=== PATIENT | male | born 1940 | race Caucasian/White ===

== ENCOUNTER 2018-02-28 15:38 | Inpatient (IN) | payer OTHER ==
[~2018-02-28] VITALS: Ht 172.7 cm; Wt 79.5 kg
--- NOTE | ~2018-02-28 | HC ---
[facility] [place] [address] CONSULTATION Name: YURI BEACH Room #: 215-P [facility] IN M.R.#: [id number] Admission: 02/28/18 Attend Phys: Torrie Franco MD Discharge: Date of : 38 Report #: [id number] THIS REPORT FOR: //name// CC: Torrie Stauffer DATE OF SERVICE: 03/03/2018 HISTORY OF PRESENT ILLNESS: The patient is an 78-year-old white male, who has a history of insulin-dependent diabetes mellitus, premorbid diabetic, peripheral neuropathy, admitted from home with weakness and inability to ambulate. He is noted to have atrial fibrillation with rapid ventricular rate and was placed on IV Cardizem. He had some hyponatremia and pancytopenia. There was concern regarding the complaints of weakness and inability to ambulate. Neurology has seen him and their impression is that he likely has the peripheral neuropathy along with spinal stenosis. MRI of the brain has been ordered as well as MRI of the lumbosacral spine. We have been consulted regarding rehabilitation issues. PAST MEDICAL HISTORY: Includes knee replacement in 2003, back surgery 1999, insulin-dependent diabetes mellitus, hypertension, hyperlipidemia, angina, asthma, coronary artery disease, spinal stenosis, syncope, obstructive sleep apnea. HABITS: No history of tobacco abuse, alcohol only on special occasions. MEDICATIONS: Please see the full medication listing. ALLERGIES: PENICILLIN, SULFA. SOCIAL HISTORY: Lives in a house with his , premorbidly was independent, ambulatory with a walker. No steps. REVIEW OF SYSTEMS: No current complaints of chest pain, shortness of breath, abdominal discomfort. He has the neuropathic changes with numbness and tingling of his distal lower extremities and some weakness of his hands consistent with his neuropathy. He has a prior left facial droop, which he relates back to some ENT surgery, apparently the parotid gland and has been left with a left facial droop. PHYSICAL EXAMINATION: GENERAL: He is a pleasant 78-year-old white male in no obvious distress. VITAL SIGNS: Last recorded temperature 98.3, pulse 86, respirations 18, blood pressure 144/74. He is alert, pleasant. HEENT: Appeared to be benign. NEUROLOGIC: Cranial nerves are grossly intact. Facies are symmetric. He does have the left facial droop that he notes is old. EOMs appeared to be full. His [address] [place] [address] CONSULTATION Name: YURI BEACH Room #: 215-P [facility] IN M.R.#: [id number] Admission: 02/28/18 Attend Phys: Torrie Franco MD Discharge: Date of : 38 Report #: [id number] functional range of motion of both upper extremity strength is grade 4-/5. Mild decreased etcrhq-pu-[id number]. He does have some hand intrinsic weakness. His lower extremities, he has distal lower extremity with decreased sensation consistent with his peripheral neuropathy. Old total knee replacement incision which is well healed. Strength of lower extremities is probably a grade 3+/5. DTRs are trace to 1. No focal calf swelling. His max assist coming to stand, but was able to take some steps with the walker, tends to be retropulsive. ASSESSMENT: An 78-year-old white male with the following problem list: 1. Gait instability with difficulty ambulating. 2. Generalized weakness with a diagnosis of peripheral neuropathy/spinal stenosis per Neurology. MRI of the brain is pending along with MRI of the lumbosacral spine. Neurology is recommending an EMG as an outpatient. 3. Insulin-dependent diabetes mellitus. 4. Atrial fibrillation with rapid ventricular response. 5. Bilateral lower extremity cellulitis, which is improving. 6. Pancytopenia. 7. Electrolyte abnormalities. PLAN: We will see what the MRI scan show. Therapies to further evaluate. We are assessing the patient to see if he would meet criteria for an acute in-hospital inpatient rehabilitation stay. We will be glad to follow along with you. By: 1122 [id number] Delonte Hilario MD /nt
--- NOTE | ~2018-02-28 | HC ---
[facility] [place] [address] CONSULTATION Name: YURI BEACH Room #: 215-P [facility] IN M.R.#: [id number] Admission: 02/28/18 Attend Phys: Torrie Franco MD Discharge: 03/05/18 Date of : 36 Report #: [id number] THIS REPORT FOR: //name// CC: Torrie Stauffer HISTORY OF PRESENT ILLNESS: This patient was seen at the request of Dr. Asif regarding mild pancytopenia that was picked up on his admission laboratory studies. He was admitted through the ER with complaints of weakness and has known atrial fibrillation. He states that he has been on long-term iron therapy for long ago detected anemia. He follows with Dr. Mckee. He denies any untoward bleeding or bruising. He denies any new suspicious masses or pains. He has no sweats, chills, fevers or weight loss. He is weak in his legs, leading to difficulty walking. PAST MEDICAL HISTORY: Significant for alcoholism. He has depression, diabetic peripheral neuropathy, prior gait disturbance due to the neuropathy. Medically managed hypertension, hyperlipidemia. He was treated for a primary cutaneous follicular cell lymphoma and seen by Dr. Margie Luna last fall. This tumor originally arose on his left cheek in 01/2012 and was treated with bendamustine and Rituxan as well as radiation therapy. In 2013, there was a left cheek recurrence and he received further radiation therapy in conjunction with further Rituxan in 2014. In 2015, he received additional left periorbital radiation therapy and this was by Dr. Yip. 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 It was noted on that workup that a PET scan was performed as well as a bone marrow aspiration and biopsy. MEDICATIONS: As listed on the MFR. ALLERGIES: SULFA AND PENICILLIN CAUSING EDEMA. SOCIAL HISTORY: Again, was positive for alcohol and he is a nonsmoker. He denies illicit drug use. FAMILY HISTORY: Noncontributory. REVIEW OF SYSTEMS: As noted. PHYSICAL EXAMINATION: HEENT: Shows left facial droop from his prior therapy. His radiation tattoo is present. NECK: Shows no suspicious adenopathy. [address] [address] CONSULTATION Name: YURI BEACH Room #: 215-P [facility] IN M.R.#: [id number] Admission: 02/28/18 Attend Phys: Torrie Franco MD Discharge: 03/05/18 Date of : 38 Report #: [id number] LUNGS: Chest is clear. CARDIOVASCULAR: Normal S1, S2. ABDOMEN: Did not reveal palpable spleen. NEUROLOGIC: No focal localizing signs. PSYCHIATRIC: Not agitated or confused. SKIN: Normal turgor with actinic changes. LYMPHATICS: No palpable supraclavicular adenopathy. LABORATORY DATA: Has been reviewed and now shows a mild thrombocytopenia, which is new in comparison with his labs from in May. His bone marrow at that time was completely negative/nondiagnostic for leukemia or lymphoma. ASSESSMENT: Ongoing anemia. PLAN: Await labs as ordered. Thanks for allowing me to see him with you in consultation and being allowed to participate in his care. <ELECTRONICALLY SIGNED> By: Delmer Blevins MD 03/05/18 2135 1450 Whitney Grant MD /nt
--- NOTE | ~2018-02-28 | 2DMMODE ---
[facility] [email or web address] [place] [address] 2 D/M-MODE ECHOCARDIOGRAM Name: YURI BEACH Room #: 215-P [facility] IN M.R.#: [id number] Admission: 02/28/18 Attend Phys: Rafael Bergman, Discharge: Date of : 36 Date of Service: 03/02/18 0719 Report #: [id number] THIS REPORT FOR: //name// APPROVED REPORT Study performed: 03/01/2018 09:49:16 EXAM: Comprehensive 2D, Doppler, and color-flow Echocardiogram Patient Location: Bedside Room #: 215 Status: on-call BSA: 1.93 HR: 94 bpm BP: 112/59 mmHg Rhythm: Atrial Fibrillation Other Information Study Quality: Good Risk Factors: Cardiac Risk Factors: DM, HTN Indications CAD Weakness 2D Dimensions LVEF(%): 54.38 (>50%) IVSd: 10.73 (7-11mm) LVOT Diam: 20.00 (18-24mm) LVDd: 42.93 mm PWd: 10.91 (7-11mm) Ascending Ao: 35.59 (22-36mm) LVDs: 30.94 (25-40mm) Aortic Root: 29.11 mm Childs's LVEF: 54.38 % Volumes Left Atrial Volume (Systole) Single Plane 4CH: 80.99 mL Single Plane 2CH: 73.60 mL LA ESV Index: 44.00 mL/m2 Aortic Valve AoV Peak Daniel.: 1.53 m/s AO Peak Gr.: 9.78 mmHg LVOT Max P.59 mmHg LVOT Max V: 0.80 m/s TREY Vmax: 1.69 cm2 [facility] [address] [place] [address] 2 D/M-MODE ECHOCARDIOGRAM Name: YURI BEACH [facility] Room #: 215-[facility] IN .R.#: [id number] Admission: 02/28/18 Attend Phys: Rafael Bergman, Discharge: Date of : 36 Date of Service: 03/02/18 0719 Report #: [id number] AI Vmax: 3.18 m/s AI Lassen: 1.59 m/s2 AI PHT: 586.57 ms Pulmonary Valve PV Peak Daniel.: 0.84 m/s PV Peak Gr.: 2.83 mmHg Tricuspid Valve TR Peak Daniel.: 2.65 m/s RAP Estimate: 7.00 mmHg TR Peak Gr.: 28.20 mmHg PA Pressure: 35.00 mmHg Left Ventricle The left ventricle is normal size. There is normal LV segmental wall motion. Borderline concentric left ventricular hypertrophy. Left ventricular systolic function is normal. The left ventricular ejection fraction is within the normal range. LVEF is 50-55%. This study is not technically sufficient to allow evaluation of the LV diastolic function due to atrial fibrillation. Right Ventricle The right ventricle is normal size. The right ventricular systolic function is normal. Atria Left atrium is moderately dilated. Right atrium is moderately dilated. Aortic Valve The Aortic valve is mildly sclerotic. Mild aortic regurgitation. There is no aortic valvular stenosis. Mitral Valve The mitral valve is normal in structure. There is mitral annular calcification. Moderate mitral regurgitation. No evidence of mitral valve stenosis. Tricuspid Valve The tricuspid valve is normal in structure. Moderate tricuspid regurgitation.Pulmonary artery pressure is 35 mmHg. Pulmonic Valve The pulmonary valve is normal in structure. Trace pulmonic regurgitation. [employer] [facility] [address] [place] [address] 2 D/M-MODE ECHOCARDIOGRAM Name: YURI BEACH Room #: 215-P [facility] IN M.R.#: [id number] Admission: 02/28/18 Attend Phys: Rafael Bergman, Discharge: Date of : 38 Date of Service: 03/02/18 0719 Report #: [id number] The aortic root is normal in size. IVC is normal in size and collapses with >50% inspiration Pericardium There is no pericardial effusion. <Conclusion> The left ventricle is normal size. Left ventricular systolic function is normal. The right ventricle is normal size. Left atrium is moderately dilated. Right atrium is moderately dilated. The Aortic valve is mildly sclerotic. Mild aortic regurgitation. Moderate mitral regurgitation. Moderate tricuspid regurgitation.Pulmonary artery pressure is 35 mmHg. <ELECTRONICALLY SIGNED> By: Souleymane Reid MD 03/02/18718 8 8 Souleymane Reid MD /INF
--- NOTE | ~2018-02-28 | HC ---
[facility] [place] [address] CONSULTATION Name: YURI BEACH Room #: 215-P [facility] IN M.R.#: [id number] Admission: 02/28/18 Attend Phys: Rafael Bergman MD Discharge: Date of : 38 Report #: [id number] THIS REPORT FOR: //name// CC: Rafael Stauffer DATE OF SERVICE: 03/01/2018 INDICATION: Chronic atrial fibrillation. HISTORY OF PRESENT ILLNESS: This is an 78-year-old gentleman with a history of CAD, persistent atrial fibrillation, diabetes mellitus, hypertension, hypercholesterolemia, reactive airway disease, presenting with generalized weakness. He had been at [facility] but was discharged home. The patient lives with his . It seems that for the past few weeks, he has had progressive weakness, unable to ambulate on his own. He denies any episodes of chest pains, shortness of breath, palpitations, lightheadedness or congestion. There is no recent history of fever or cough. PAST MEDICAL HISTORY: History of CAD with stent to the RCA in 2010, followed by Dr. Gigi Isbell. Chronic atrial fibrillation, managed with rate control and anticoagulation therapy. History of hypertension, diabetes mellitus, hypercholesterolemia, reactive airway disease. ALLERGIES: Include SULFA and PENICILLIN. MEDICATIONS: At home include Pradaxa 75 mg twice a day, diltiazem 240 mg daily, Monopril 20 mg daily, Lasix p.r.n., Pravachol 40 mg at night, Combivent inhaler. SOCIAL HISTORY: Negative for tobacco use. The patient lives with his . FAMILY HISTORY: Negative for premature CAD. REVIEW OF SYSTEMS: A full 10-point review of systems performed. Only the pertinent positives and negatives are described in the HPI. PHYSICAL EXAMINATION: VITAL SIGNS: Blood pressure is 120/60, heart rate is 94 beats per minute. GENERAL APPEARANCE: This is an elderly appearing male in no acute respiratory distress. HEAD AND EYES: Normocephalic. Sclerae are anicteric. ENT: Oral mucosa moist. NECK: Supple. LUNGS: Clear to auscultation. CARDIAC: Irregularly irregular, S1, S2 positive. ABDOMEN: Soft, nontender. [facility] [address] [place] [address] CONSULTATION Name: YURI BEACH Room #: 215-P [facility] IN ..#: [id number] Admission: 02/28/18 Attend Phys: Rafael Bergman MD Discharge: Date of : 38 Report #: [id number] EXTREMITIES: No cyanosis. Trace edema. Chest x-ray reveals no acute pulmonary process. LABORATORY VALUES: White count is 3.6, hemoglobin is 8.7, platelet count is 99,000. Sodium is 132, potassium is 3.3, creatinine is 1.1. TSH is 0.448, within normal limits. ASSESSMENT AND PLAN: 1. Atrial fibrillation, chronic, continue with Cardizem and Pradaxa. Will need an echocardiogram. 2. Coronary artery disease, remote history of stent placement. Stable with no symptoms of angina or dyspnea. 3. Generalized weakness, rule out an infectious process, check urine and blood cultures. 4. Hypertension, continue with medications. 5. Hypercholesterolemia, continue with statin therapy. 6. Diabetes mellitus, continue with insulin and check fingersticks. <ELECTRONICALLY SIGNED> By: Souleymane Reid MD 03/01/18 2144 1217 1430 Souleymane Reid MD /nt
--- NOTE | ~2018-02-28 | EKG ---
[address] [address] ELECTROCARDIOGRAM REPORT Name: YURI BEACH Room #: 215-P [facility] IN M.R.#: [id number] Admission: 02/28/18 Attend Phys: Rafael Bergman MD Discharge: Date of : 38 Report #: [id number] THIS REPORT FOR: //name// [facility] ED Test Date: 2018-02-28 Test Time: 16:05:35 Pat Name: YURI BEACH Department: Room: Gender: M [employer]: HUE : 1940 Requested By: Ari Pendleton Order Number: [id number] MD: Souleymane Reid Measurements Intervals Stanley Rate: 109 P: MN: QRS: 3 QRSD: 96 T: -10 QT: 319 QTc: 430 Interpretive Statements Atrial fibrillation Compared to ECG 06/25/2013 17:06:18 Sinus rhythm no longer present Electronically Signed On 02-28-2018 22:28:09 CDT by Souleymane Reid [email or web address] <ELECTRONICALLY SIGNED> By: Souleymane Reid MD 02/28/18 2228 1605 1605 Souleymane Reid MD /JADE
[~2018-02-28 15:38] MED LIST: AMARYL1 MG PO; ASA5UEC PO; ASA81BEC PO; ASPIRIN325; ATIVAN0.5 MG PO; ATIVAN1 MG; ATIVAN1 MG PO; CARDIZEM CD300 MG PO; COMBIVENT INH; FLOMAX0.4 MG PO; HYDROCODON-ACE1 EAC7 PO; KLOR-CON 1010 MEQ PO; LANTUS SQ; LASIX 80 MG TAB80 M1 PO; LEXAPRO 10 MG T10 MG PO; LOPRESSOR 50 MG50 M1 PO; MONOPRIL40 MG PO; NORCO 5-325 TA1 EACH PO; NOVOPEN 31 EACH SQ; PLAVIX 75 MG TA75 MG PO; PRAVACHOL40 MG PO; TESTIM5 GM TD; TRAMADOL 50 MG50 MG PO; ZPAK PO
[2018-02-28 15:51] VITALS: BP 127/68
[2018-02-28 17:34] LABS: ABSOLUTE NEUTROPHILS 3.3 thou/uL (1.4-8.2); BASOPHILS 0.2 % (0.0-2.0); EOSINOPHILS 0.3 % (0.0-3.0); HEMATOCRIT 28.1 % (42.0-52.0); HEMOGLOBIN 9.5 gm/dL (14.0-18.0); LYMPHOCYTES 12.8 % (24.0-44.0); MCH 28.5 pg (26.0-34.0); MCHC 33.7 g/dL (28.0-37.0); MCV 84.6 fL (80.0-100.0); MONOCYTES 5.5 % (1.0-8.0); PLATELET COUNT 108 thou/uL (150-400); POLYS 81.2 % (36.0-66.0); RBC 3.33 mil/uL (4.50-6.00); RDW 17.4 % (10.5-14.5)
[2018-02-28 17:42] LABS: ANION GAP 4 mmol/L (7-16); BUN 33 mg/dL (7-18); CHLORIDE 98 mmol/L (98-107); CO2 25 mmol/L (21-32); CREATININE 1.3 mg/dL (0.7-1.3); GLUCOSE 163 mg/dL (74-106); POTASSIUM 4.1 mmol/L (3.5-5.1); SODIUM 127 mmol/L (136-145)
[2018-02-28 17:51] LABS: ALBUMIN 3.3 g/dL (3.4-5.0); SGOT 19 U/L (15-37); SGPT 30 U/L (30-65); TOTAL BILIRUBIN 0.3 mg/dL (<0.1-1.0); TOTAL PROTEIN 6.5 g/dL (6.4-8.2); TROPONIN-I < 0.04 ng/mL (<0.06)
[2018-02-28 18:33] LABS: URINE BILIRUBIN NEGATIVE (Negative); URINE BLOOD 1+ (Negative); URINE CLARITY CLEAR; URINE COLOR YELLOW; URINE GLUCOSE-RANDOM* NEGATIVE (Negative); URINE KETONES NEGATIVE (Negative); URINE LEUKOCYTES-REFLEX NEGATIVE (Negative); URINE NITRITE-REFLEX NEGATIVE (Negative); URINE PROTEIN (DIPSTICK) TRACE (Negative); URINE SPECIFIC GRAVITY 1.015 (1.005-1.035); URINE UROBILINOGEN 0.2 E.U./dl (0.2-1.0)
[2018-02-28 18:43] LABS: BACTERIA-REFLEX 1-9 Few /HPF (None Seen); CASTS None Seen /LPF (None Seen); CRYSTALS None Seen /LPF (None Seen); SQUAMOUS 4-10 Moderate /LPF (0-3); URINE RBC 0-2 Rare /HPF (0-2); URINE WBC-REFLEX 0-5 Rare /HPF (0-5)
[2018-02-28 20:51] VITALS: BP 125/58
[2018-03-01 00:26] VITALS: BP 110/51
[2018-03-01 05:16] VITALS: BP 109/53
[2018-03-01 05:56] LABS: HEMATOCRIT 25.4 % (42.0-52.0); HEMOGLOBIN 8.7 gm/dL (14.0-18.0); MCH 28.7 pg (26.0-34.0); MCHC 34.2 g/dL (28.0-37.0); MCV 83.9 fL (80.0-100.0); RBC 3.03 mil/uL (4.50-6.00); RDW 17.3 % (10.5-14.5); WBC 3.6 thou/uL (4.0-11.0)
[2018-03-01 06:05] LABS: CALCIUM 8.5 mg/dL (8.5-10.1); CREATININE 1.1 mg/dL (0.7-1.3); POTASSIUM 3.3 mmol/L (3.5-5.1)
[2018-03-01 07:55] VITALS: BP 112/59
[2018-03-01 12:19] VITALS: BP 122/58
[2018-03-01 16:44] VITALS: BP 116/50
[2018-03-01 20:00] VITALS: BP 104/50
[2018-03-02 01:04] VITALS: BP 121/55
[2018-03-02 04:09] VITALS: BP 129/63
[2018-03-02 06:38] LABS: ABSOLUTE NEUTROPHILS 2.2 thou/uL (1.4-8.2); BASOPHILS 0.3 % (0.0-2.0); EOSINOPHILS 3.7 % (0.0-3.0); HEMATOCRIT 26.4 % (42.0-52.0); LYMPHOCYTES 26.8 % (24.0-44.0); MCH 28.6 pg (26.0-34.0); MCHC 34.3 g/dL (28.0-37.0); MCV 83.4 fL (80.0-100.0); MONOCYTES 11.4 % (1.0-8.0); PLATELET COUNT 110 thou/uL (150-400); POLYS 57.8 % (36.0-66.0); RBC 3.17 mil/uL (4.50-6.00); WBC 3.7 thou/uL (4.0-11.0)
[2018-03-02 06:47] LABS: CALCIUM 8.4 mg/dL (8.5-10.1); CREATININE 0.9 mg/dL (0.7-1.3); MAGNESIUM 1.6 mg/dL (1.8-2.4); POTASSIUM 3.2 mmol/L (3.5-5.1)
[2018-03-02 07:15] VITALS: BP 125/63
[2018-03-02 19:40] VITALS: BP 120/62
[2018-03-03 04:49] LABS: HEMATOCRIT 28.4 % (42.0-52.0); HEMOGLOBIN 9.7 gm/dL (14.0-18.0); MCH 28.8 pg (26.0-34.0); MCHC 34.2 g/dL (28.0-37.0); MCV 84.3 fL (80.0-100.0); PLATELET COUNT 123 thou/uL (150-400); RBC 3.37 mil/uL (4.50-6.00); RDW 16.6 % (10.5-14.5); WBC 3.9 thou/uL (4.0-11.0)
[2018-03-03 04:51] VITALS: BP 135/76
[2018-03-03 05:00] LABS: CALCIUM 8.3 mg/dL (8.5-10.1); CREATININE 0.8 mg/dL (0.7-1.3); MAGNESIUM 1.5 mg/dL (1.8-2.4); POTASSIUM 3.7 mmol/L (3.5-5.1)
[2018-03-03 05:30] LABS: ABSOLUTE NEUTROPHILS 2.4 thou/uL (1.4-8.2); ANISOCYTOSIS 1+
[2018-03-03 07:33] VITALS: BP 144/74
[2018-03-03 08:12] LABS: ABSOLUTE RETIC COUNT 0.0335 10^6/uL
[2018-03-03 08:18] LABS: % SATURATION 32 % (20-39); IRON 59 ug/dL (65-175); TIBC 183 ug/dL (250-450)
[2018-03-03 09:31] LABS: FOLIC ACID 27.4 ng/mL (8.6-58.9)
[2018-03-03 11:16] LABS: TOTAL PROTEIN 6.6 g/dL (6.4-8.2)
[2018-03-03 12:10] VITALS: BP 121/61
[2018-03-03 15:30] VITALS: BP 112/56
[2018-03-03 20:13] VITALS: BP 115/51
[2018-03-04 06:02] VITALS: BP 142/61
[2018-03-04 07:08] VITALS: BP 148/70
[2018-03-04 11:02] VITALS: BP 120/64
[2018-03-04] MEDS ORDERED: LASIX 40 MG TAB40 M2 PO (11:53)
[2018-03-04] MEDS ORDERED: NYAMYC15 GM TOP (11:53)
[2018-03-04] MEDS ORDERED: DOXYCYCLINE 10100 MG PO (11:53)
[2018-03-04] MEDS ORDERED: NOVOLOG100 UNIT/1 SUBQ (11:53)
[2018-03-04] MEDS ORDERED: ASPIR 8181 MG PO (11:53)
[2018-03-04] MEDS ORDERED: CARDIZEM CD240 MG PO (11:53)
[2018-03-04] MEDS ORDERED: LISINOPRIL5 MG PO (11:53)
[2018-03-04] MEDS ORDERED: DUONEB 2.5-0.5 M3 ML INH (11:53)
[2018-03-04] MEDS ORDERED: MAGOX 400400 MG PO (11:53)
[2018-03-04] MEDS ORDERED: PRADAXA75 MG PO (11:53)
[2018-03-04 15:11] VITALS: BP 93/53
[2018-03-04 20:23] VITALS: BP 123/61
[2018-03-05 05:22] VITALS: BP 140/64
[2018-03-05 07:28] VITALS: BP 146/75
[2018-03-05 11:13] VITALS: BP 100/59
[2018-03-05] MEDS ORDERED: LOPRESSOR25 PO (12:01)
[2018-03-05] MEDS ORDERED: NORVASC10 MG PO (13:51)
[2018-03-05 15:07] LABS: GLOBULIN TOTAL 2.2 g/dL (2.2-3.9); M-SPIKE Not Observed g/dL (Not Observed)
[2018-03-05 15:25] VITALS: BP 100/59
== END 2018-03-05 15:26 | DRG 871 ==
LOC: ER 15:38 → EROBS 18:18 → 2N 18:18
PROVIDERS: Internal Medicine; Internal Medicine Hematology & Oncology; Nurse Practitioner Family; Physician Assistant
DX: A41.9 Sepsis, unspecified organism (principal); E43 Unspecified severe protein-calorie malnutrition; L03.116 Cellulitis of left lower limb; E87.1 Hypo-osmolality and hyponatremia; D61.818 Other pancytopenia; L03.115 Cellulitis of right lower limb; I48.2 Chronic atrial fibrillation; I10 Essential (primary) hypertension; Z96.659 Presence of unspecified artificial knee joint; E87.6 Hypokalemia; E83.42 Hypomagnesemia; M62.84 Sarcopenia; R26.89 Other abnormalities of gait and mobility; M48.061 Spinal stenosis, lumbar region without neurogenic claudication; M19.90 Unspecified osteoarthritis, unspecified site; E11.42 Type 2 diabetes mellitus with diabetic polyneuropathy; E78.5 Hyperlipidemia, unspecified; I25.10 Atherosclerotic heart disease of native coronary artery without angina pectoris; E78.00 Pure hypercholesterolemia, unspecified; D64.9 Anemia, unspecified; N40.0 Benign prostatic hyperplasia without lower urinary tract symptoms; J45.909 Unspecified asthma, uncomplicated; F32.9 Major depressive disorder, single episode, unspecified; Z79.1 Long term (current) use of non-steroidal anti-inflammatories (NSAID); Z88.0 Allergy status to penicillin; Z88.2 Allergy status to sulfonamides; Z95.5 Presence of coronary angioplasty implant and graft; Z79.82 Long term (current) use of aspirin; Z79.899 Other long term (current) drug therapy
CPT/HCPCS: 10081